=== PATIENT | female | born 1950 | race Caucasian/White ===

== ENCOUNTER → 2017-11-05 | Outpatient (CLI) | payer MEDICARE ==
--- NOTE | 2017-11-19 06:48 | MM ---
Reason for exam: screening (asymptomatic). Last mammogram was performed 3 years ago. History: Patient is postmenopausal. Benign excisional biopsy of the right breast, 2014. Physical Findings: A clinical breast exam by your physician is recommended on an annual basis and results should be correlated with mammographic findings. MG 3D Screening Mammo W/Cad Bilateral CC and MLO view(s) were taken. Prior study comparison: November 07, 2014, mammogram. The breast tissue is heterogeneously dense. This may lower the sensitivity of mammography. Finding: There are a few typically benign round calcifications in the left breast. Asymmetric breast tissue in the left breast inner lower quadrant. Previous mammotome biopsy in the right breast. There is no discrete abnormality. ASSESSMENT: Benign, BI-RAD 2 RECOMMENDATION: Routine screening mammogram of both breasts in 1 year.
== END | disposition home or self-care (01) ==
LOC: RADMAMWWP 15:51
PROVIDERS: ATTEND Family Medicine
DX: Z12.31 Encounter for screening mammogram for malignant neoplasm of breast (principal)
CPT/HCPCS: 77063; 77067

== ENCOUNTER → 2019-01-07 | Outpatient (CLI) | payer MEDICARE ==
--- NOTE | 2019-01-07 11:39 | MM ---
Reason for exam: screening (asymptomatic). Last mammogram was performed 1 year and 2 months ago. History: Patient is postmenopausal. Benign excisional biopsy of the right breast, 2014. Physical Findings: A clinical breast exam by your physician is recommended on an annual basis and results should be correlated with mammographic findings. MG 3D Screening Mammo W/Cad Bilateral CC and MLO view(s) were taken. Prior study comparison: November 05, 2017, bilateral MG 3d screening mammo w/cad. November 07, 2014, mammogram. There are scattered fibroglandular densities. Previous mammotome biopsy in the right breast. Stable scattered focal asymmetries unchanged. ASSESSMENT: Negative, BI-RAD 1 RECOMMENDATION: Routine screening mammogram of both breasts in 1 year.
== END | disposition home or self-care (01) ==
LOC: RADMAMWWP 10:48
PROVIDERS: ATTEND Family Medicine
DX: Z12.31 Encounter for screening mammogram for malignant neoplasm of breast (principal)
CPT/HCPCS: 77063; 77067